=== PATIENT | female | born 1965 | race Caucasian/White ===

== ENCOUNTER 2016-12-16 11:04 | Outpatient (CLI) | payer BC ==
--- NOTE | 2016-12-16 15:44 | Mammography Report ---
BILATERAL DIGITAL SCREENING MAMMOGRAM WITH CAD:12/16/16 CLINICAL: Baseline screening. FINDINGS: The breasts are heterogeneously dense and the density is sufficient to limit the sensitivity of mammography. Right asymmetries require additional imaging. The breast is negative. IMPRESSION: Right asymmetries requiring further workup. BI-RADS CATEGORY: 0 -- Needs Additional Imaging RECOMMENDATION: Recall for right lateralmedial and spot compression MLO and CC views views and right breast ultrasound if needed. ACR BI-RADS MAMMOGRAPHIC CODES: 0 = Needs additional imaging evaluation; 1 = Negative; 2 = Benign; 3 = Probably benign; 4 = Suspicious; 5 = Malignant; 6 = Known biopsy-proven malignancy COMMENT: 1. Dense breast tissue, i.e., adenosis, fibrocystic changes, etc., may obscure an underlying neoplasm. 2. Approximately 10% of cancers are not detected with mammography. 3. A negative mammography report should not delay biopsy if a clinically suspicious mass is present.
== END 2016-12-16 11:05 | disposition home or self-care (01) ==
LOC: SPVWC 11:04
PROVIDERS: ATTEND Internal Medicine
DX: Z12.31 Encounter for screening mammogram for malignant neoplasm of breast (principal)
CPT/HCPCS: 77067; G0202

== ENCOUNTER 2017-01-19 12:24 | Outpatient (CLI) | payer BC ==
--- NOTE | 2017-01-19 14:02 | Ultrasound Report ---
RIGHT DIGITAL DIAGNOSTIC MAMMOGRAM and RIGHT BREAST ULTRASOUND: 01/19/17 12:24:00 CLINICAL: Recalled for asymmetry. COMPARISON:12/16/16 screening FINDINGS: Lateralmedial and spot compression MLO and CC views were performed. Satisfactory effacement of asymmetries on the spot view and a negative lateral view. However, a new asymmetry is identified the spot MLO view and it is inferior to the original asymmetry. There is no correlation on other views. Ultrasound of the right breast (including all four quadrants and the retroareolar area) was performed. A solid oval hypoechoic mass at 5 o'clock 2 cm from the nipple measures 1.3 x 1.0 x 0.5 cm. It demonstrates mild shadowing. An irregular cyst at 10 o'clock 3 cm from the nipple measures 7 x 5 x 2 mm and a benign cyst at 11 o'clock 3 cm from the nipple measures 7 x 2 x 4 mm. No explanation for the asymmetry on the MLO spot view. IMPRESSION: A solid 1.3 cm right breast mass at 5 o'clock. Sonographic features suggest benign fibroadenoma. However, recommend ultrasound-guided needle core biopsy to confirm benignity. BI-RADS CATEGORY: 4A--Mildly Suspicious I discussed the findings and the recommendation for needle core biopsy with the patient with her [id number] as an certified court/medical interpreter at the time of the examination. ACR BI-RADS MAMMOGRAPHIC CODES: 0 = Needs additional imaging evaluation; 1 = Negative; 2 = Benign; 3 = Probably benign; 4 = Suspicious; 5 = Malignant; 6 = Known biopsy-proven malignancy COMMENT: 1. Dense breast tissue, i.e., adenosis, fibrocystic changes, etc., may obscure an underlying neoplasm. 2. Approximately 10% of cancers are not detected with mammography. 3. A negative mammography report should not delay biopsy if a clinically suspicious mass is present. COMMENT: Patient follow-up letters are generated via our [employer] application.
== END 2017-01-19 12:25 | disposition home or self-care (01) ==
LOC: SPVWC 12:24
PROVIDERS: ATTEND Family Medicine
DX: N60.01 Solitary cyst of right breast (principal); N63.10 Unspecified lump in the right breast, unspecified quadrant
CPT/HCPCS: 76641; G0206

== ENCOUNTER 2017-01-31 08:37 | Outpatient (CLI) | payer BC ==
--- NOTE | 2017-01-31 10:48 | Ultrasound Report ---
ULTRASOUND GUIDED NEEDLE CORE BIOPSY RIGHT BREAST WITH CLIP PLACEMENT: 01/31/17 CLINICAL: Right breast mass at 5 o'clock. COMPARISON :01/19/17 FINDINGS: The procedure was explained to the patient and informed consent was obtained. Ultrasound demonstrated the previously described mobile mass at 5 o'clock 2 cm from the nipple.. I marked the breast with a felt tip marker and a time out was called. The skin was prepped with Betadine and anesthetized with 1% lidocaine. Needle core biopsy was performed through a tiny dermatotomy using ultrasound guidance, 2% lidocaine with epinephrine for deep anesthesia and a 14-gauge Achieve biopsy device. 3 cores were obtained and placed in formalin. A clip was deployed within the mass. The patient tolerated the procedure well and there were no apparent complications. Hemostasis was achieved with minimal pressure and a sterile dressing was applied. A two view mammogram demonstrated satisfactory placement of the clip. She left the department in good condition and was given instructions for wound care and followup. IMPRESSION: Uncomplicated ultrasound guided needle core biopsy with clip placement right breast.
--- NOTE | 2017-01-31 10:48 | Mammography Report ---
RIGHT DIGITAL DIAGNOSTIC MAMMOGRAM: 01/31/17 08:37:00 CLINICAL: For clip placement immediately status post ultrasound biopsy. COMPARISON:01/19/17 and 12/16/16 FINDINGS: A biopsy clip is now identified in the lower inner quadrant. IMPRESSION: Concordant clip placement status post ultrasound biopsy. BI-RADS CATEGORY: 4--Suspicious Pathology pending.
== END 2017-01-31 08:38 | disposition home or self-care (01) ==
LOC: SPVIMAG 08:37
PROVIDERS: ATTEND Family Medicine
DX: N63.10 Unspecified lump in the right breast, unspecified quadrant (principal)
CPT/HCPCS: 19083; 88307; A4648; G0206